=== PATIENT | female | born 1950 | race Caucasian/White ===

== ENCOUNTER 2017-08-08 18:42 | Inpatient (IN) | payer OTHER ==
[~2017-08-08] VITALS: Ht 165.1 cm; Wt 78.6 kg
[2017-08-08 20:30] VITALS: BP 152/76; PULSE 80; TEMP 36.6; O2SAT 94; Ht 165.1 cm; Wt 78.6 kg
[2017-08-08] MEDS ORDERED: ONDANSETRON INJ 2 MG/ML 2 ML VIAL IV PRN (20:45)
[2017-08-08] MEDS ORDERED: ACETAMINOPHEN 325 MG TAB PO PRN (20:45)
[2017-08-08] MEDS ORDERED: CIPROFLOXACIN / D5W 400 MG in PREMIXED IN D5W 200 ML IV SCH (21:00)
[2017-08-08] MEDS ORDERED: CMD4 PO (21:11)
[2017-08-08] MEDS ORDERED: MULT-506 PO (21:11)
[2017-08-08] MEDS ORDERED: OMEP20TA PO (21:11)
[2017-08-08] MEDS ORDERED: LOSA1TAB PO (21:11)
[2017-08-08] MEDS ORDERED: MoRPHine SULFATE 2 MG/ML CARP IV PRN (21:15)
[2017-08-08] MEDS ORDERED: PIPERACILL/TAZOBAC CONSULT ACTIVE PRN (21:17)
[2017-08-08 21:26] LABS: BASO % 0.4 %; BASO ABS # 0.04 K/uL (0-0.2); COMPLETE YES; EOS % 2.1 %; HEMATOCRIT 39.7 % (37-47); IG% 0.2 %; LYMPH % 21.5 %; LYMPH ABS # 1.99 K/uL (1.2-3.4); MEAN CELL VOLUME 81.2 fL (80-100); MEAN CORPUSCULAR HEMOGLOBIN 27.6 pg (25-34); MEAN PLATELET VOLUME 10.8 fL (7.4-10.4); MONO % 5.6 %; NEUT % 70.2 %; PLATELET COUNT 258 K/uL (130-400); RED BLOOD COUNT 4.89 M/uL (4.2-5.4); WHITE BLOOD COUNT 9.26 K/uL (4.8-10.8)
[2017-08-08] MEDS ORDERED: PATIENT'S HEIGHT AND/OR WEIGHT NEEDED SCH (21:30)
[2017-08-08 21:45] LABS: BUN/CREATININE RATIO 18.7 (10-20); CALCIUM 8.5 mg/dl (8.5-10.1); CREATININE 0.6 mg/dl (0.60-1.20); POTASSIUM 3.5 mmol/L (3.5-5.1)
[2017-08-08 21:48] LABS: ALB/GLOB RATIO 0.9 (0.9-2)
[2017-08-08] MEDS ORDERED: PANTOprazole INJ 40 MG in SYRINGE 0 ML IV ONE (22:00)
--- NOTE | 2017-08-08 22:02 | History and Physical ---
History & Physical Date & Time of Service: Aug 08, 2017 at 21:16 Chief Complaint: Acute Cholecystitis Primary Care Physician: Felipe Pan M.D. History of Present Illness Source: patient Pt is 67 y/o F with PMH SLE, antiphospholipid antibody syndrome, TIA, HTN presented as transfer from [facility] with c/o epigastric pain and cholecystitis. Pt reports a couple of weeks ago had epigastric pain and had u/s abdomen at that time showing sludge and gallstones. She f/u with Dr Adame and was scheduled for cholecystectomy on 08/15/17. Pt reports initially when had epigastric pain it was following eating hamburger. She reports this am with onset of aching and burning type pain to epigastric region with radiation into back. Pt seen by PCP and referred to [place] [facility]. Received report from ER Dr Dick that no surgeon senior controller for couple of days there and pt was transferred here. No records sent with pt. Dr Chaves senior controller surgeon made aware of pt. Pt had u/s RUQ today. Hx U/S abd on 07/27/17 also. Pt denies needing any pain meds in ER today as the pain had subsided. Reports nausea this am, no vomiting. Had 2 BMs today. Denies fever/chills, diaphoresis, diarrhea, melena, hematochezia, SERRANO, dizziness, syncope, vision changes, neck pain, CP, SOB, orthopnea, palpitations, cough, rhinorrhea, paresthesias, weakness, extremity edema, rashes, urinary symptoms. RUQ U/S 08/08/17 1:49PM Impression: Gallbladder is normal in overall size with a mildly thickened wall and a trace of pericholecystic fluid. There are gallstones and sludge present. The pt reports tenderness to probe pressure over the gallbladder (positive Olsen's sign). There is no biliary duct dilation. The common bile duct measures 6.3mm. No ascites is detected in the RUQ. The R kidney is unremarkable as imaged. The visualized pancreatic parenchyma is unremarkable. No convincing evidence for space-occupying lesion within the liver or pancreas. U/S ABD 07/27/17 9:21am Impression: The gallbladder is filled with sludge and gallstones. Mild diffuse gallbladder wall thickening, nonspecific. No pericholecystic fluid. Negative sonographic Olsen's sign. Acute or chronic cholecystis could have this appearance. Clinical correlation is required. Mild splenomegaly. Past Medical/Surgical History Medical Problems: (1) Antiphospholipid antibody syndrome Status: Chronic (2) Depression Status: Chronic (3) DVT (deep venous thrombosis) Permanent Comment: - 1992 Status: Chronic (4) Dyslipidemia Status: Chronic (5) HTN (hypertension) Status: Chronic (6) Lupus erythematosus Permanent Comment: dx: 1985 Denies any complications or symptoms Status: Chronic (7) Migraine without aura Status: Chronic (8) TIA (transient ischemic attack) Status: Chronic Surgical Problems: (1) History of esophagogastroduodenoscopy (EGD) Permanent Comment: 10/2016 - mild inflammation on bx. Dr Wilson Status: Resolved (2) History of right oophorectomy Status: Resolved (3) History of tonsillectomy and adenoidectomy Status: Resolved (4) Hx of appendectomy Status: Resolved (5) Hx of colonoscopy Permanent Comment: 10/2016 - adenomatous polyp, diverticulosis. Dr Wilson Status: Resolved (6) Hx of hysterectomy Status: Resolved Family History Diabetes mellitus DAUGHTER GRANDFATHER GRANDMOTHER FH: CAD (coronary artery disease) GRANDMOTHER ([place]) FH: cancer MOTHER (small bowel, colon, breast - age 74) BROTHER (Hodgkins age 52) Social History Smoking Status: Former Smoker (Quit 1968) Smokeless Tobacco Use: No Alcohol Use: occasionally Drug Use: none Marital Status: Allergies Coded Allergies: Epinephrine (Verified Allergy, Unknown, unknown, 08/08/17) Avon (Verified Allergy, Unknown, HIVES, 08/08/17) Atorvastatin (Verified Adverse Reaction, Unknown, other, 08/08/17) muscle aches Lactose Intolerance (GI) (Verified Adverse Reaction, Unknown, GI SYMPTOMS , 08/08/17) Home Medications Scheduled Losartan Potassium (Cozaar), 1 TAB PO DAILY Multivitamin (Multivitamin), 1 TAB PO DAILY Omeprazole (Omeprazole), 1 TAB PO BID Warfarin Sod (Coumadin), PO UD Review of Systems Constitutional: + weight loss (doing weight watchers, lost approx 30 pounds past 8 months), No fever, No chills, No sweats, No weakness, No fatigue ENT: No unusual epistaxis, No nasal symptoms Respiratory: No cough, No shortness of breath Cardiovascular: No chest pain, No edema Abdomen: + problem reported (see HPI) Musculoskeletal: No joint pain, No muscle pain, No swelling, No calf pain Genitourinary - Female: No dysuria, No urinary frequency, No urinary urgency, No hematuria Psychiatric: + depression symptoms (not currently on meds), No anxiety Endocrine: No excessive thirst, No excessive urination Hematologic / Lymphatic: No abnormal bleeding/bruising, No clotting problems Integumentary: No rash, No itch Physical Exam General Appearance: WD/WN, no apparent distress Head: normocephalic, atraumatic Eyes: normal inspection, PERRL, sclerae normal ENT: hearing grossly normal, pharynx normal Neck: supple, trachea midline Respiratory/Chest: chest non-tender, lungs clear, normal breath sounds, no respiratory distress, no accessory muscle use Cardiovascular: regular rate, rhythm, no edema, no murmur Abdomen/GI: soft, + tenderness (epigastric without rebound or guarding) Back: no CVA tenderness Extremities/Musculoskelatal: no calf tenderness, normal capillary refill, no pedal edema, non-tender, + pertinent finding (Right anterior lower leg with hyperpigmentation) Neurologic/Psych: alert, normal mood/affect, oriented x 3 Skin: normal color, warm/dry Diagnostics Laboratory Results Last 24 Hours Test 08/08/17 20:59 White Blood Count 9.26 K/uL Red Blood Count 4.89 M/uL Hemoglobin 13.5 g/dL Hematocrit 39.7 % Mean Corpuscular Volume 81.2 fL Mean Corpuscular Hemoglobin 27.6 pg Mean Corpuscular Hemoglobin Concent 34.0 g/dl Platelet Count 258 K/uL Mean Platelet Volume 10.8 fL Neutrophils (%) (Auto) 70.2 % Lymphocytes (%) (Auto) 21.5 % Monocytes (%) (Auto) 5.6 % Eosinophils (%) (Auto) 2.1 % Basophils (%) (Auto) 0.4 % Neutrophils # (Auto) 6.50 K/uL Lymphocytes # (Auto) 1.99 K/uL Monocytes # (Auto) 0.52 K/uL Eosinophils # (Auto) 0.19 K/uL Basophils # (Auto) 0.04 K/uL RDW Standard Deviation 45.2 fL RDW Coefficient of Variation 15.1 % Immature Granulocyte % (Auto) 0.2 % Immature Granulocyte # (Auto) 0.02 K/uL Sodium Level 139 mmol/L Potassium Level 3.5 mmol/L Chloride Level 107 mmol/L Carbon Dioxide Level 25 mmol/L Anion Gap 8.0 mmol/L Blood Urea Nitrogen 11 mg/dl Creatinine 0.60 mg/dl Est Creatinine Clear Calc Drug Dose 94.3 ml/min Estimated GFR () 109.3 Estimated GFR (Non- 94.3 BUN/Creatinine Ratio 18.7 Random Glucose 90 mg/dl Calcium Level 8.5 mg/dl Total Bilirubin 0.7 mg/dl Aspartate Amino Transf (AST/SGOT) 463 U/L Alanine Aminotransferase (ALT/SGPT) 338 U/L Alkaline Phosphatase 195 U/L Total Protein 7.3 gm/dl Albumin 3.5 gm/dl Globulin 3.8 gm/dl Albumin/Globulin Ratio 0.9 Lipase 126 U/L Impression Assessment and Plan ACUTE CHOLECYSTITIS Able to obtain out pt RUQ U/S from today showing mildly thickened gallbladder wall, trace pericholecystic fluid, gallstones, sludge, positive Olsen's sign, no biliary duct dilation. common bile duct measures 6.3mm. No records sent with pt. Obtaining pt's records from [place]. Vitals stable upon admission. Pt denies current pain or nausea. No leukocytosis. AST: 463, ALT: 338, Alk Phos: 195. Lipase WNL -zosyn -NSS 100ml/hr -NPO after midnight -zofran prn -morphine prn -surgical consult -repeat cbc, cmp in am CHRONIC COUMADIN THERAPY Pt with hx antiphospholipid antibody syndrome and TIA and on chronic coumadin. No INR records -Obtaining INR now -hold Coumadin -repeat INR in am HTN -continue losartan GERD -PPI: po tonight, IV tomorrow am as anticipate possible surgery DVT PROPHYLAXIS -SCDs DISPOSITION -admit med/surg -Full Code -Follows with Dr Pan for routine care Pt was seen with Dr Moon. See addendum Attending Note: Patient is a 67 yr female with PMH of SLE, antiphospholipid antibody syndrome and other problems presents with history of epigastric pain and Imaging studies (done outpatient) was consistent with acute cholecystitis. Patient was initially planned for any elective cholecystectomy but as patient had recurrence of abdominal pain today, her PCP referred patient to [place] [facility] and later transferred to [facility] as a direct admit due to unavailability of a surgeon at [place]. Reports associated nausea but no vomiting. Physical Exam: Vitals signs as noted above General Appearance:Moderately built and nourished, no apparent distress Head: normocephalic, Atraumatic Eyes: normal inspection, EOMI, PERRL Neck: supple, Trachea midline Respiratory/Chest: Normal breath sounds, CTA, No accessory muscle use Cardiovascular: S1, S2, No murmur Abdomen/GI:Soft, Mild epigastric tender, No guarding/rebound, Bowel sounds present Extremities/Musculoskelatal:normal inspection, no edema, RLE pigmentation from prior trauma Neurologic/Psych:AAOX3, grossly no focal neurological deficits Skin:normal color,warm Assessment and Plan: Acute Cholecystitis: No signs of sepsis IV fluids, NPO, IV Abx Surgery consulted Will obtain old records Pain control Transaminitis: Likely secondary to above monitor LFTs Antiphospholipid Antibody Syndrome H/O TIAs X 3: INR:1.7 Will give Heparin SQ Hold Coumadin for possible surgery in AM H/O SLE: Not on meds per patient DVT Px: Heparin SQ I personally reviewed the record. Patient is interviewed and examined at bedside. Patient's care is coordinated with Ligia Navarrete PA-C. Please refer to the documentation above for details of patient's presentation and for discussion of other issues. Level of Care Med/Surg Resuscitation Status FULL RESUSCITATION VTE Prophylaxis VTE Risk Assessment Done? Y/N: Yes Risk Level: Moderate Given or contraindicated: SCD's Additional Copies To Felipe Pan M.D.
[2017-08-08 22:08] LABS: INR 1.7 (0.9-1.1); PARTIAL THROMBOPLASTIN RATIO 2.9; PROTHROMBIN TIME (PATIENT) 17.8 SECONDS (9.0-12.0)
[2017-08-08] MEDS: SODIUM CHLORIDE 0.9% 1000ML 1,000 ML IV SCH (22:53)
[2017-08-08 23:03] VITALS: BP 147/69; PULSE 60; TEMP 36.4; O2SAT 95
[2017-08-08 23:26] LABS: INR 1.7 (0.9-1.1); PARTIAL THROMBOPLASTIN RATIO 2.9; PROTHROMBIN TIME (PATIENT) 17.6 SECONDS (9.0-12.0)
[2017-08-09] MEDS ORDERED: PIPERACILL/TAZOBAC IV 3.375 GM in DEXTROSE 5% 100ML IV ONE ×2
[2017-08-09] MEDS: HEPARIN SOD 5000 UNIT/0.5 ML CARP SQ SCH ×3 (00:17→14:00)
[2017-08-09] MEDS: PIPERACILL/TAZOBAC IV 3.375 GM in DEXTROSE 5% 100ML IV SCH ×2 (04:28→11:54)
[2017-08-09 06:47] LABS: BASO % 0.7 %; BASO ABS # 0.05 K/uL (0-0.2); COMPLETE YES; EOS % 2.7 %; IG% 0.3 %; LYMPH % 21.3 %; LYMPH ABS # 1.57 K/uL (1.2-3.4); MEAN CELL VOLUME 81.6 fL (80-100); MEAN CORPUSCULAR HGB CONC 33.1 g/dl (32-36); MEAN PLATELET VOLUME 10.8 fL (7.4-10.4); MONO % 4.8 %; NEUT % 70.2 %; PLATELET COUNT 251 K/uL (130-400); RED BLOOD COUNT 4.78 M/uL (4.2-5.4); WHITE BLOOD COUNT 7.36 K/uL (4.8-10.8)
--- NOTE | 2017-08-09 06:51 | HISTORY & PHYSICAL EXAMINATION ---
DATE OF ADMISSION: 08/09/2017 SUMMARY: I was called yesterday evening by Dr. Dick at the [place] [facility] where the patient had acute cholecystitis. He reported that there was no surgeon available until Tuesday and the patient wanted to be transferred here. The patient apparently has seen Dr. Adame for an elective cholecystectomy on 08/15/2017. She reports a couple weeks' history of epigastric pain and an ultrasound had been documented that she has sludge and gallstones. She was seen down in the Emergency Room at that time because she had the acute onset of achy, burning pain radiating to her back. She was seen by the primary care physician and referred to [place] [facility]. Dr. Dick wanted to transfer here for possible surgery. Since it was late evening, when I was called I felt that may the patient should be admitted there medically and may be transferred today for possible surgery, but he was in touch with the medical service here and they elected to transfer directly to the medical service. PHYSICAL EXAMINATION: VITAL SIGNS: Her last vitals showed a temperature of 36.4, respirations 16, blood pressure 147/69. GENERAL: As I see Dorie today, she is in no acute distress. She is sleeping comfortably, I easily awoke her. HEENT: Head is normocephalic. Eyes PERRLA. Sclerae nonicteric. NECK: There is no cervical lymphadenopathy. HEART AND LUNGS: Normal and clear. ABDOMEN: Completely benign. She has had no previous upper abdominal surgery. She had lower abdominal surgery gynecological. LABORATORY DATA: At [place] showed white count to be elevated at 13,000. However, the laboratory that was done here showed a white count of 9.60. Her liver enzymes were slightly elevated AST, ALT and alkaline phosphate. Bilirubin was normal. The ultrasound did not show any common bile duct dilatation. PAST MEDICAL HISTORY: She has antiphospholipid lipid antibody syndrome, depression, DVTs in the past, dyslipidemia, hypertension, lupus erythematosus, migraine, TIAs. PAST SURGICAL HISTORY: History of EGD for gastroesophageal reflux, history of right oophorectomy, tonsillectomy, history of appendectomy and colonoscopy. She also had a hysterectomy as stated. FAMILY HISTORY: Diabetes in daughter, grandfather, grandmother. Coronary artery disease in grandmother. Brother has small bowel cancer and brother had Hodgkin's disease. SOCIAL HISTORY: She is a former smoker, quit 40 years ago. ALLERGIES: SHE HAS ALLERGIES TO EPINEPHRINE, STRAWBERRY, LACTOSE INTOLERANCE. MEDICATIONS: Her present medicine include Cozaar, multivitamin, omeprazole and Coumadin. REVIEW OF SYSTEMS: She denied any significant weight loss, but she has intentionally lost about 30 pounds over the last 8 months. No respiratory or cardiovascular problems. No abdominal problem rather than what is reported. Last INR of 1.7 yesterday. This morning's is pending. APTT is 70.05. She had been started on heparin subQ q. 8 hours. Would rec reversing Coumadin and starting on a heparin drip. PLAN: At this point, we will await laboratory this morning, but if everything proceeds accordingly I recommend that we proceed with laparoscopic cholecystectomy and intraoperative cholangiogram. Risk and complications of surgery were explained. That includes bleeding, infection, converting to an open procedure and like to proceed accordingly.Offered pt to have Dr Adame do surgery but she is agreeable for me to proceed with it. Discussed case with hospital service this morning 08/09 reg above plans. BALDOMERO
[2017-08-09 07:05] LABS: INR 1.8 (0.9-1.1); PARTIAL THROMBOPLASTIN RATIO 2.8; PROTHROMBIN TIME (PATIENT) 18.7 SECONDS (9.0-12.0)
[2017-08-09 07:07] VITALS: BP 156/88; PULSE 60; TEMP 36.6; O2SAT 95
[2017-08-09 07:14] LABS: ALB/GLOB RATIO 0.9 (0.9-2); BUN/CREATININE RATIO 13.7 (10-20); CALCIUM 8.4 mg/dl (8.5-10.1); CREATININE 0.67 mg/dl (0.60-1.20); POTASSIUM 3.5 mmol/L (3.5-5.1)
[2017-08-09] MEDS ORDERED: PANTOprazole SOD 40 MG TAB PO SCH (09:00)
[2017-08-09] MEDS ORDERED: LOSARTAN POTASSIUM 25 MG TAB PO SCH (09:00)
[2017-08-09] MEDS ORDERED: MULTIVITAMIN TAB PO SCH (09:00)
--- NOTE | 2017-08-09 11:44 | Progress Note ---
Progress Note Date of Service Aug 09, 2017. Progress Note Patient evaluated at 11:[address] Adame S: Patient states she is pain free and feeling well. No abdominal pain, nausea, or vomiting. Labs this am show no leukocytosis and improving LFTs. O: All vital signs stable, afebrile General: Alert and oriented x 3, NAD Abdomen: Soft, nontender A/P: Symptomatic cholelithiasis with Acute Cholecystitis Discussed with patient options of Laparoscopic Cholecystectomy tomorrow with Dr. Curtis vs going home and undergo scheduled laparoscopic cholecystectomy Tuesday08/15/[address] Adame. Patient would prefer to go home as she is feeling much better and without pain. She was advised to stick to fat free diet and bland diet until Tuesday. Patient understood. Patient seen and evaluated with Dr. Adame who agrees with above
[2017-08-09] MEDS: SODIUM CHLORIDE 0.9% 1000ML 1,000 ML IV SCH (11:57)
--- NOTE | 2017-08-09 13:04 | Discharge Summary ---
Discharge Summary Date of Service Aug 09, 2017. Discharge Summary Admission Date: Aug 08, 2017 at 20:27 Discharge Date: Aug 09, 2017 Discharge Disposition: Home Principal Diagnosis: chronic cholecystitis HTN SLE/Antiphospholipid Ab syndrome h/o TIAs x 2 h/o DVT in legs on chronic warfarin therapy. Procedures: None. Vaccinations: None. Consultations: General Surgery-Dr. Fuentes Pending Studies/Follow-Up: see instructions below. Medication Reconciliation Continued Medications: Losartan Potassium (Cozaar) 25 Mg Tab 1 TAB PO DAILY for 30 Days, #30 TAB 5 Refills Multivitamin (Multivitamin) Tab 1 TAB PO DAILY, TAB Omeprazole (Omeprazole) 20 Mg Tab 1 TAB PO BID for 90 Days, #180 TAB 1 Refill Warfarin Sod (Coumadin) 4 Mg Tab PO UD 0.5 tab po on , , Sat. 1 tab po mon, tue, tue, sun. Admission Information HPI (per Admitting provider): Pt is 67 y/o F with PMH SLE, antiphospholipid antibody syndrome, TIA, HTN presented as transfer from [facility] with c/o epigastric pain and cholecystitis. Pt reports a couple of weeks ago had epigastric pain and had u/s abdomen at that time showing sludge and gallstones. She f/u with Dr Adame and was scheduled for cholecystectomy on 08/15/17. Pt reports initially when had epigastric pain it was following eating hamburger. She reports this am with onset of aching and burning type pain to epigastric region with radiation into back. Pt seen by PCP and referred to [place] [facility]. Received report from ER Dr Dick that no surgeon ski production supervisor for couple of days there and pt was transferred here. No records sent with pt. Dr Chaves ski production supervisor surgeon made aware of pt. Pt had u/s RUQ today. Hx U/S abd on 07/27/17 also. Pt denies needing any pain meds in ER today as the pain had subsided. Reports nausea this am, no vomiting. Had 2 BMs today. Denies fever/chills, diaphoresis, diarrhea, melena, hematochezia, SERRANO, dizziness, syncope, vision changes, neck pain, CP, SOB, orthopnea, palpitations, cough, rhinorrhea, paresthesias, weakness, extremity edema, rashes, urinary symptoms. RUQ U/S 08/08/17 1:49PM Impression: Gallbladder is normal in overall size with a mildly thickened wall and a trace of pericholecystic fluid. There are gallstones and sludge present. The pt reports tenderness to probe pressure over the gallbladder (positive Olsen's sign). There is no biliary duct dilation. The common bile duct measures 6.3mm. No ascites is detected in the RUQ. The R kidney is unremarkable as imaged. The visualized pancreatic parenchyma is unremarkable. No convincing evidence for space-occupying lesion within the liver or pancreas. U/S ABD 07/27/17 9:21am Impression: The gallbladder is filled with sludge and gallstones. Mild diffuse gallbladder wall thickening, nonspecific. No pericholecystic fluid. Negative sonographic Olsen's sign. Acute or chronic cholecystis could have this appearance. Clinical correlation is required. Mild splenomegaly. Physical Exam (per Admitting): General Appearance: WD/WN, no apparent distress Head: normocephalic, atraumatic Eyes: normal inspection, PERRL, sclerae normal ENT: hearing grossly normal, pharynx normal Neck: supple, trachea midline Respiratory/Chest: chest non-tender, lungs clear, normal breath sounds, no respiratory distress, no accessory muscle use Cardiovascular: regular rate, rhythm, no edema, no murmur Abdomen/GI: soft, + tenderness (epigastric without rebound or guarding) Back: no CVA tenderness Extremities/Musculoskelatal: no calf tenderness, normal capillary refill, no pedal edema, non-tender, + pertinent finding (Right anterior lower leg with hyperpigmentation) Neurologic/Psych: alert, normal mood/affect, oriented x 3 Skin: normal color, warm/dry Hospital Course The patient was transferred from [facility] and admitted to the medical floor. She remained afebrile and hemodynamically stable overnight. She denies any pain since arriving to the [place] [facility]. She did well overnight and was evaluated by General Surgery the following morning. Her LFTs on day of admission were AST-463, ALT-338, ALP-195 TB-0.7. These trended to AST -212, ALT-268, ALP-172 and TB-0.8 the following day. PTT was also elevated around 70 without any heparin given. This was thought to be secondary to her underlying APL antibody syndrome. No baseline PTT was available for comparison in the inpatient or outpatient records. The recommendation was made to proceed with surgery, however, because she was clinically well and not in pain, she was given the option to followup for her elective cholecystectomy with Dr. Adame the following week. She opted for that. She was able to tolerate solid foods prior to leaving and left in stable condition. She understands how to bridge her coumadin with Lovenox preoperatively and reported to me she already has the Lovenox at home. Total time spent on discharge = 60 minutes This includes examination of the patient, discharge planning, medication reconciliation, and communication with other providers. Discharge Instructions [facility] [address] [place] [address] Discharge Medical Patient Name: Dorie Hogue Unit Number: [id number] Date of : 1950 Patient Status: Admitted Inpatient Attending Doctor: Lennie Treviño DO DI: Medical v4 Discharge Instructions Date of Service Aug 09, 2017. Admission Reason for Admission: Acute Cholecystitis Discharge Discharge Diagnosis / Problem: chronic cholecystitis Discharge Goals Goal(s): Prevent Disease Progression Activity Recommendations Activity Limitations: per Instructions/Follow-up section . Instructions / Follow-Up Instructions / Follow-Up Please take all medications as instructed. Please follow bridging protocol with Lovenox as scheduled by your Anticoagulation Clinic. As instructed by Dr. Adame, please adhere to a bland diet until your surgery next week. It is recommended that you have a one week follow-up with Dr. Pan after this hospitalization. This is right around the time of your surgery, so sometime shortly after that would be recommended as a follow-up to touch base. A copy of the discharge summary will be sent to his office. It was a pleasure taking care of you! Call if you have any questions or problems. You can reach a [facility] hospitalist on duty at [facility] 24 hours a day by calling [phone]. Take care of yourself. Lennie Treviño DO [facility] Hospitalist Current Hospital Diet Patient's current hospital diet: AHA Diet (Heart Healthy), Low Fat Diet Discharge Diet Recommended Diet: AHA Diet (Heart Healthy), Low Fat Diet Pending Studies Studies pending at discharge: no Medical Emergencies . Who to Call and When: Medical Emergencies: If at any time you feel your situation is an emergency, please call 911 immediately. . Non-Emergent Contact Non-Emergency issues call your: Primary Care Provider . . "Provider Documentation" section prepared by Lennie Treviño. . VTE Core Measure Inpt VTE Proph given/why not?: Unfractionated heparin SQ, Warfarin (Coumadin), SCD's Additional Copies To Felipe Pan M.D.
[2017-08-09 13:28] VITALS: BP 156/88; PULSE 60; TEMP 36.6; O2SAT 95
== END 2017-08-09 14:46 | disposition home or self-care (01) | DRG 445 ==
LOC: C.MSN 20:27
PROVIDERS: ADMIT Internal Medicine; ATTEND Hospitalist
DX: K80.00 Calculus of gallbladder with acute cholecystitis without obstruction (principal); D68.61 Antiphospholipid syndrome; Z79.01 Long term (current) use of anticoagulants; M32.9 Systemic lupus erythematosus, unspecified; Z86.73 Personal history of transient ischemic attack (TIA), and cerebral infarction without residual deficits; I10 Essential (primary) hypertension; Z83.3 Family history of diabetes mellitus; Z82.49 Family history of ischemic heart disease and other diseases of the circulatory system; Z80.0 Family history of malignant neoplasm of digestive organs; K21.9 Gastro-esophageal reflux disease without esophagitis; R74.0 Nonspecific elevation of levels of transaminase and lactic acid dehydrogenase [LDH]; Z90.721 Acquired absence of ovaries, unilateral; Z90.710 Acquired absence of both cervix and uterus; Z86.718 Personal history of other venous thrombosis and embolism

== ENCOUNTER 2017-08-15 06:23 | Day surgery (SDC) | payer OTHER ==
[2017-08-12 10:55] VITALS: BMI 28.0
[~2017-08-15] VITALS: Ht 165.1 cm; Wt 77.3 kg
[2017-08-15] VITALS (8 sets, daily range): BP systolic 146–185; BP diastolic 54–77; PULSE 62–97; TEMP 36.3–36.8; O2SAT 96–100; Ht 165.1 cm; Wt 77.3 kg
[~2017-08-15 06:23] MED LIST: CEFAZOLIN 2000MG IV PUSH 10 ML IV SCH; CMD4 PO; ENOX80IN SQ; LACTATED RINGER'S 1000ML 1,000 ML IV SCH; LOSA1TAB PO; MULT-506 PO; OMEP20TA PO
[2017-08-15] MEDS ORDERED: ONDANSETRON INJ 2 MG/ML 2 ML VIAL IV PRN ×2 (06:45→10:45)
[2017-08-15] MEDS ORDERED: HYDROmorphone INJ 1 MG/ML SYR IV PRN (06:45)
[2017-08-15] MEDS ORDERED: EpHEDrine SULFATE INJ 50 MG/ML AMP IV PRN (06:45)
[2017-08-15] MEDS ORDERED: ATROPINE SULFATE 0.1 MG/ML 5ML SYR IV PRN (06:45)
[2017-08-15] MEDS ORDERED: PHENYLEPHRINE 100MCG/ML 5ML SYR IV PRN (06:45)
[2017-08-15 07:15] LABS: INR 1.2 (0.9-1.1); PARTIAL THROMBOPLASTIN RATIO 3.6; PROTHROMBIN TIME (PATIENT) 12.7 SECONDS (9.0-12.0)
[2017-08-15] MEDS ORDERED: MIDAZOLAM HCL 1 MG/ML 2ML VIAL ONE (07:49)
[2017-08-15] MEDS ORDERED: FENTANYL CITRATE INJ 50 MCG/1 ML 2 ML VIAL ONE (07:49)
[2017-08-15] MEDS ORDERED: PROPOFOL IV EMULSION 10 MG/ML 20 ML VIAL IV ONE (07:49)
[2017-08-15] MEDS ORDERED: ROCURONIUM BROMIDE 10 MG/ML 5 ML VIAL IV ONE (07:50)
[2017-08-15] MEDS ORDERED: LIDOCAINE HCL 2% 2 ML VIAL (20MG/ML) ONE ×2 (07:50)
[2017-08-15] MEDS ORDERED: PHENYLEPHRINE HCL INJ 10 MG/ML VIAL ONE (07:50)
[2017-08-15] MEDS ORDERED: EpHEDrine SULFATE INJ 50 MG/ML AMP ONE (07:50)
[2017-08-15] MEDS ORDERED: CEFAZOLIN SOD 1 GM VIAL ONE (09:01)
[2017-08-15] MEDS ORDERED: CONRAY 60% 50 ML VIAL ONE (09:01)
[2017-08-15] MEDS ORDERED: HEPARIN SOD (PORCINE) 1000 UNIT/ML 10 ML VIAL ONE (09:02)
[2017-08-15] MEDS ORDERED: BUPIVACAINE 0.5 % 5 MG/1 ML MPF 30ML VIAL ONE (09:02)
--- NOTE | 2017-08-15 09:14 | History & Physical Bridge Note ---
H&P Re-Evaluation Bridge Note: I have examined the patient, reviewed the History & Physical and in the interval since the performance of the History & Physical I have noted the following changes of clinical significance: No changes noted
[2017-08-15] MEDS ORDERED: GLYCOPYRROLATE INJ 0.2 MG/ML VIAL ONE ×2 (10:01)
[2017-08-15] MEDS ORDERED: NEOSTIGMINE METHYLSULFATE 5 MG/5 ML SYR ONE (10:01)
[2017-08-15] MEDS ORDERED: SODIUM CHLORIDE 0.9% 1000ML 1,000 ML IV SCH (10:34)
--- NOTE | 2017-08-15 10:34 | [facility] Post Operative Brief Note ---
Immediate Operative Summary Operative Date Aug 15, 2017. Pre-Operative Diagnosis Sludge in Gallbladder Post-Operative Diagnosis Sludge in Gallbladder Procedure(s) Performed Laparoscopic Cholecystectomy Surgeon Dr. Sidney Adame Retanned Leather Roller Surgeon(s) Jerica Reed PA-C Estimated Blood Loss 5 mL Findings See dictation Specimens Permanent specimens A: Gallbladder and contents Drains None Anesthesia General Complication(s) None Disposition Recovery Room / PACU
[2017-08-15] MEDS: FENTANYL CITRATE INJ 50 MCG/1 ML 2 ML VIAL IV PRN ×4 (10:35→10:50)
--- NOTE | 2017-08-15 10:36 | Discharge Instructions ---
Discharge Instructions Date of Service Aug 15, 2017. Admission Reason for Admission: Symptomatic Cholelithiasis Discharge Discharge Diagnosis / Problem: Same Discharge Goals Goal(s): Decrease discomfort Activity Recommendations Activity Limitations: per Instructions/Follow-up section Lifting Limitations: no more than 10 pounds (for 2 weeks) Shower/Bathe: tomorrow (shower only) . Instructions / Follow-Up Instructions / Follow-Up Post-Surgical ~ Discharge Instructions Activity Recommendations: - lifting limitation: (10 pounds for 2 weeks), - exercise/sex/sports limit: (nonstrenuous for 2 weeks), - driving or machine use limit: (none for 1 week), - Shower/bathe limit: (may shower beginning tomorrow) Diet: - Resume previous diet SPECIAL CARE INSTRUCTIONS: - May shower in 24 hours. Let water run over area and pat dry. - Leave steri strips on for one week. - Call the surgeon's office with any questions or concerns - - (ex. temperature higher than 101 degrees F, excessive bleeding or pain). MEDICATIONS: - Resume previous medications unless instructed otherwise by your surgeon. - Ibuprofen 600 mg every 6 hours with food - Percocet 1 every 4 hours, as needed for pain FOLLOW UP VISIT: - If not already scheduled, please call the office to schedule a two week follow-up appointment. Office number Current Hospital Diet Patient's current hospital diet: Discharge Diet Recommended Diet: Regular Diet Procedures Procedures Performed: Laparoscopic Cholecystectomy Pending Studies Studies pending at discharge: yes List of pending studies: Pathology Medical Emergencies . Who to Call and When: Medical Emergencies: If at any time you feel your situation is an emergency, please call 911 immediately. . Non-Emergent Contact Non-Emergency issues call your: Primary Care Provider, Surgeon Call Non-Emergent contact if: your pain is worsening, wound has increased redness, wound has increased pain . "Provider Documentation" section prepared by Sidney Adame. . VTE Core Measure Inpt VTE Proph given/why not?: Treatment not indicated
[2017-08-15] MEDS ORDERED: MoRPHine SULFATE 4 MG/ML 1 ML CARP\\VIAL IV PRN (10:45)
[2017-08-15] MEDS ORDERED: OXYCODONE/ACETAMINOPHEN 5-325 TAB PO PRN (10:45)
--- NOTE | 2017-08-15 11:12 | Anesthesiology Progress Note ---
Anesthesia Post Op Note Date & Time Aug 15, 2017 at 11:12 Vital Signs Pain Intensity: 4 Vital Signs Past 12 Hours Date Time Temp Pulse Resp B/P (MAP) Pulse Ox O2 Delivery O2 Flow Rate FiO2 08/15/17 11:05 55 16 130/62 97 Room Air 08/15/17 10:55 62 16 122/51 92 Room Air 08/15/17 10:45 57 16 146/56 100 Oxymask 10 08/15/17 10:35 62 16 158/89 100 Oxymask 10 08/15/17 10:29 36.6 64 16 188/68 100 Oxymask 10 08/15/17 06:46 36.3 86 20 152/76 (101) 97 Room Air Notes Mental Status: alert / awake / arousable, participated in evaluation Pt Amnestic to Procedure: Yes Nausea / Vomiting: adequately controlled Pain: adequately controlled Airway Patency, RR, SpO2: stable & adequate BP & HR: stable & adequate Hydration State: stable & adequate Anesthetic Complications: no major complications apparent
[2017-08-15] MEDS ORDERED: NURSING VERBAL MED ORDER ONE (12:30)
[2017-08-15] MEDS ORDERED: PROMETHAZINE HCL INJ 12.5 MG in SODIUM CHLORIDE 0.9% 50ML 50 ML IV SCH (12:45)
--- NOTE | 2017-08-15 18:59 | OPERATIVE REPORT ---
DATE OF OPERATION: 08/15/2017 PREOPERATIVE DIAGNOSIS: Cholelithiasis, chronic cholecystitis. POSTOPERATIVE DIAGNOSIS: Same. PROCEDURE: Laparoscopic cholecystectomy. SURGEON: Sidney Adame MD. SPOOL SANDER: Jerica Reed PA-C. FINDINGS: The gallbladder was mildly dilated. There were some small stones within the lumen. The cystic duct was narrow. There were no adhesions to the gallbladder. The liver was of normal size and contour. The visible bowel appeared normal. TECHNIQUE: The patient was given a general anesthetic and the area was prepped and draped in the usual sterile fashion. Transverse incision was made below the umbilicus, carried down through the subcutaneous tissue to the fascia which was grasped with 2 Morenita clamps and incised between. The peritoneum was identified, incised, and the introducer was placed bluntly. The abdomen was then insufflated to a pressure of 15 mmHg with carbon dioxide. The upper midline, midclavicular and anterior axillary introducers were placed under direct vision through small skin incision. Traction was placed on the gallbladder. The cystic duct lymph node was noted to be adherent to the gallbladder and that proved to be near the junction of the gallbladder and the cystic duct. The peritoneum was opened on the lateral side of the infundibulum and peeled down towards the common bile duct. The gallbladder in the infundibular area was dissected away from the liver on that lateral side allowing better mobility. Further dissection was carried out over the anterior surface of the infundibulum and into the triangle of Calot, which was opened and the medial aspect of the infundibulum was dissected away from the liver. That allowed me to identify additional connective tissue and lymphatics that were peeled away from the anterior surface of the cystic duct and that allowed me to visualize the cystic duct near the junction with the gallbladder. Further dissection away from liver of the infundibulum allowed a good window posterior to those structures. There was feeding vessels to the cystic duct lymph node which were isolated, clamped and divided. That allowed me to confidently identify the cystic duct and its junction with the gallbladder. Three clips were placed on the proximal cystic duct, 1 near its junction with the gallbladder and was divided. The cystic artery was then identified behind the cystic duct and behind where the cystic duct lymph node was located. It was isolated, clamped 3 times proximally and once near the gallbladder and divided. The gallbladder was then peeled off the liver bed using electrocautery. Gallbladder was placed into an Endobag and brought out through the upper midline incision with ease. That introducer was replaced. The liver edge was elevated. The gallbladder bed of the liver was inspected and there was no bleeding. The subdiaphragmatic and subhepatic spaces were irrigated and the irrigation removed. The gallbladder bed again was inspected and there was no bleeding. The previously placed clips were inspected and were intact. The gas was allowed to escape and the introducers were removed. The fascia of the umbilical introducer site was closed with interrupted 0 Vicryl and the skin of all the incisions was closed with 4-0 Monocryl in either an interrupted or running subcuticular fashion. The skin was anesthetized with 0.5% Marcaine. The skin was cleansed, dried, benzoin placed. Steri-Strips applied. The estimated blood loss was 5 mL. Sponge, needle and instrument counts were correct x2 prior to closure. The patient tolerated the surgical procedure without complication and was transferred to recovery. I attest to the content of the Intraoperative Record and any orders documented therein. Any exception s are noted below.
== END 2017-08-15 15:08 | disposition home or self-care (01) ==
LOC: C.ACU 06:23
PROVIDERS: ATTEND Surgery
DX: K80.12 Calculus of gallbladder with acute and chronic cholecystitis without obstruction (principal); I10 Essential (primary) hypertension; E78.5 Hyperlipidemia, unspecified; M85.80 Other specified disorders of bone density and structure, unspecified site; F32.9 Major depressive disorder, single episode, unspecified; M19.90 Unspecified osteoarthritis, unspecified site; L93.0 Discoid lupus erythematosus; M81.0 Age-related osteoporosis without current pathological fracture; Z86.73 Personal history of transient ischemic attack (TIA), and cerebral infarction without residual deficits; Z86.718 Personal history of other venous thrombosis and embolism; K21.9 Gastro-esophageal reflux disease without esophagitis; E66.9 Obesity, unspecified; Z68.28 Body mass index [BMI] 28.0-28.9, adult; Z79.01 Long term (current) use of anticoagulants; Z79.899 Other long term (current) drug therapy